=== PATIENT | male | born 1965 | race Two or more races ===

== ENCOUNTER 2024-04-05 20:39 | Emergency (ER) | payer MEDICAID, OTHER, SELFPAY ==
[~2024-04-05] VITALS: Ht 170.2 cm; Wt 79.5 kg
[~2024-04-05 20:39] MED LIST: NO MEDS
[2024-04-05 20:57] VITALS: BP 108/62; PULSE 84; RESP 18; TEMP 98; O2SAT 100
[2024-04-05 21:43] LABS: COVID AG,FIA SOURCE NASAL SWAB
[2024-04-05 22:08] LABS: INFLUENZA TYPE A NEGATIVE FOR TYPE A (NEGATIVE); INFLUENZA TYPE B NEGATIVE FOR TYPE B (NEGATIVE); SARS-COV2 (COVID) ANTIGEN,FIA Negative (Negative)
[2024-04-05] MEDS ORDERED: ACET-3385 PO (22:34)
[2024-04-05] MEDS ORDERED: AZIT-164 PO (22:34)
[2024-04-05] MEDS ORDERED: IBUP-1492 PO (22:34)
[2024-04-05] MEDS: ALBUTEROL SULFATE HFA 90 MCG/PUFF 8 GM INHALER IH ONE (22:50)
[2024-04-05] MEDS: ACETAMINOPHEN 500 MG TABLET PO ONE (22:51)
[2024-04-05] MEDS: AZITHROMYCIN 500 MG TABLET PO ONE (22:51)
== END 2024-04-05 22:59 | disposition home or self-care (01) ==
LOC: EMS 20:39
DX: J18.9 Pneumonia, unspecified organism (principal); Z20.822 Contact with and (suspected) exposure to COVID-19
CPT/HCPCS: 99284; 71045; 87426; 87804; 94640; J0456; J3535